=== PATIENT | female | born 1955 | race African-American/Black ===

== ENCOUNTER → 2017-01-02 | Outpatient (CLI) | payer OTHER ==
[~2017-01-02] MED LIST: ALBI1INJ SQ; ASPI81 PO; ATOR40TA49 PO; CALC600T34 PO; CLIN1CAP5 PO; Diabetic Supplies XX; EMPA1TAB PO; EXEN10PE SQ; GABA300C3 PO; HYDR-2768 PO; HYDR-3533 PO; INDO50 PO; INSU1INJ14 SQ; LANTUSP SQ; LIPI40TA PO; METF-324 PO; METF1000 PO; NEUR300C PO; NOVOLOGP2 SQ; REST0.05 EACH EYE; TAB-TAB PO; TELM20 PO; TELM40 PO; [UNRECOGNIZED DRUG - OTHER]; [UNRECOGNIZED DRUG - OTHER] PO; [UNRECOGNIZED DRUG - SUPPLY]
[2017-01-02 13:18] LABS: AUTOMATED NEUTROPHIL # 4.9 TH/MM3 (1.8-7.7); BASOPHIL # 0.1 TH/MM3 (0-0.2); BASOPHIL % 1.3 % (0.0-2.0); EOSINOPHIL # 0.1 TH/MM3 (0-0.4); EOSINOPHIL % 1.4 % (0.0-4.0); HEMATOCRIT 38.4 % (35.0-46.0); MEAN CELL VOLUME 69.4 FL (80.0-100.0); MEAN CORPUSCULAR HEMOGLOBIN 21.6 PG (27.0-34.0); MEAN CORPUSCULAR HGB CONC 31.1 % (32.0-36.0); MONO % 5.6 % (0.0-8.0); NEUT % 64.7 % (16.0-70.0); PLATELET COUNT 222 TH/MM3 (150-450); RED BLOOD COUNT 5.53 MIL/MM3 (4.00-5.30); RED CELL DISTRIBUTION WIDTH 15.4 % (11.6-17.2); RETIC % 1.4 % (0.4-3.0); WHITE BLOOD COUNT 7.6 TH/MM3 (4.0-11.0)
[2017-01-02 13:19] LABS: HEMO FLAGS AUTO DIFF
[2017-01-02 13:38] LABS: ANION GAP 8 MEQ/L (5-15); BICARBONATE 30.1 MEQ/L (21.0-32.0); BLOOD UREA NITROGEN 22 MG/DL (7-18); CHLORIDE 107 MEQ/L (98-107); GLOMERULAR FILTRATION RATE 59 ML/MIN (>89); GLUCOSE,FASTING 72 MG/DL (74-99); POTASSIUM 4.2 MEQ/L (3.5-5.1); SODIUM (NA) 145 MEQ/L (136-145)
[2017-01-02 13:39] LABS: TRANSFERRIN IRON PROFILE 216 MG/DL (200-360)
[2017-01-02 13:53] LABS: HEMOGLOBIN A1a 1.5 %; HEMOGLOBIN A1b 2.3 %; HEMOGLOBIN Ao 81.4 %; HEMOGLOBIN P3 4.3 %
[2017-01-02 14:05] LABS: SCAN/DIFF AUTO DIFF CONFIRMED
== END ==
LOC: CLAB 12:54
PROVIDERS: ATTEND Family Medicine
DX: E11.65 Type 2 diabetes mellitus with hyperglycemia (principal); E55.9 Vitamin D deficiency, unspecified; D50.9 Iron deficiency anemia, unspecified
CPT/HCPCS: 36415; 80048; 82306; 83036; 83540; 83550; 85025; 85044

== ENCOUNTER 2017-01-25 14:44 | Emergency (ER) | payer OTHER ==
[~2017-01-25] VITALS: Ht 157.5 cm; Wt 102.7 kg
[~2017-01-25 14:44] MED LIST changes: -ASPI81 PO; -ATOR40TA49 PO; -CALC600T34 PO; -CLIN1CAP5 PO; -Diabetic Supplies XX; -EXEN10PE SQ; -GABA300C3 PO; -HYDR-2768 PO; -HYDR-3533 PO; -INDO50 PO; -LANTUSP SQ; -METF-324 PO; -NOVOLOGP2 SQ; -TAB-TAB PO; -TELM40 PO; -[UNRECOGNIZED DRUG - OTHER]; -[UNRECOGNIZED DRUG - OTHER] PO; -[UNRECOGNIZED DRUG - SUPPLY]
[2017-01-25 14:46] VITALS: BP 139/84; PULSE 86; RESP 20; TEMP 97.6; O2SAT 99
--- NOTE | 2017-01-25 15:06 | PD ---
HPI Chief Complaint: Injury Time Seen by Provider: 15:06 Travel History International Travel<30 days: No Contact w/Intl Traveler<30days: No Traveled to known affect area: No History of Present Illness HPI 61-year-old female presents to the emergency Department with complaint of right foot pain and swelling since Monday after twisting it while gardening. She said she tripped over the root of a tree and twisted her foot. She has been working the last 2 days and has been ambulatory on the foot. Denies paresthesias, loss of sensation, decreased range of motion, decreased strength to the affected extremity. Denies fever, chills, nausea, vomiting. Has taken ibuprofen and is using a postop shoe for support. She has also been elevating and icing her foot. Denies being up-to-date on her tetanus vaccination. Allergies to Norvasc and Vasotec. History of diabetes. No other modifying factors or associated signs and symptoms. PFSH Past Medical History Hx Anticoagulant Therapy: Yes Anemia: Yes Cancer: No Cardiovascular Problems: Yes Chemotherapy: No Cerebrovascular Accident: No Diabetes: Yes Diminished Hearing: No Glaucoma: No Hepatitis: No Hiatal Hernia: No Hypertension: No Neurologic: Yes (diabetic neuropathy) Respiratory: No Thyroid Disease: No Past Surgical History Abdominal Surgery: No Cardiac Surgery: Yes (CARDIAC CATH, MILD BLOCKAGE) Ear Surgery: No Endocrine Surgery: No Eye Surgery: Yes (CATARACT EXTRACT. RIGHT) Genitourinary Surgery: No Gynecologic Surgery: Yes (EXP LAP REPAIR LACERATION UTERUS (POST-OP CHILDBIRTH) ) Hysterectomy: No Oral Surgery: No Pacemaker: No Thoracic Surgery: No Social History Alcohol Use: Yes (SOCIALLY) Tobacco Use: No Substance Use: No Allergies-Medications (Allergen,Severity, Reaction): Coded Allergies: Norvasc (Verified Allergy, Intermediate, COUGHING, 01/25/17) Vasotec (Verified Allergy, Intermediate, COUGHING, 01/25/17) Reported Meds & Prescriptions Reported Meds & Active Scripts Active Clindamycin (Clindamycin HCl) 150 Mg Cap 450 Mg PO Q6H 10 Days Reported Restasis Opth Drops (Cyclosporine Opth Drops) 0.05% Emul 1 Drop EACH EYE BID Jardiance (Empagliflozin) 10 Mg Tab 10 Mg PO DAILY Tresiba Flextouch Pen Inj (Insulin Degludec Inj) 300 unit/3 ML Pen 34 Units SQ HS Tanzeum 4-Pack Inj (Albiglutide) 30 Mg Pfpen 30 Mg SQ Q7D Neurontin (Gabapentin) 300 Mg Cap 300 Mg PO BID Micardis (Telmisartan) 20 Mg Tab 20 Mg PO DAILY Metformin (Metformin HCl) 1,000 Mg Tab 1,000 Mg PO BIDPC With meals Lipitor (Atorvastatin Calcium) 40 Mg Tab 40 Mg PO HS Review of Systems Except as stated in HPI: all other systems reviewed are Neg Physical Exam Narrative GENERAL: Well-nourished, well-developed female patient, in no acute distress; afebrile, nontoxic-appearing SKIN: Warm and dry. HEAD: Atraumatic. Normocephalic. EYES: Pupils equal and round. No scleral icterus. No injection or drainage. ENT: Mucosa pink and moist. Airway patent. NECK: Trachea midline. CARDIOVASCULAR: Regular rate. RESPIRATORY: No accessory muscle use. GASTROINTESTINAL: Obese. MUSCULOSKELETAL: Dorsal aspect of right foot with edema, erythema, and warmth to touch; with tenderness on palpation; edema extends up to the ankle but the ankles without tenderness on palpation; no obvious deformity; no open wounds noted. Right lower extremity supple and non-tense with 2+ pedal pulses and sensory intact. No obvious deformities. No clubbing. No cyanosis. No edema. NEUROLOGICAL: Awake and alert. Oriented 3. No obvious cranial nerve deficits. Motor grossly within normal limits. Normal speech. PSYCHIATRIC: Appropriate mood and affect; insight and judgment normal. Data Data Last Documented VS Vital Signs Date Time Temp Pulse Resp B/P Pulse Ox O2 Delivery O2 Flow Rate FiO2 01/25/17 14:46 97.6 86 20 139/84 99 Room Air Orders Foot, Complete (Hjy2azz) (01/25/17 15:06) Ice/Cold Pack (01/25/17 15:06) Acetaminophen (Tylenol) (01/25/17 15:15) Tetanus/Diphtheria Tox Adult (Tetanus/Di (01/25/17 15:30) MDM Medical Decision Making Medical Screen Exam Complete: Yes Emergency Medical Condition: Yes Medical Record Reviewed: Yes Differential Diagnosis Foot fracture, cellulitis, foot sprain Narrative Course 61-year-old female with right foot injury. The dorsal aspect of the right foot is edematous and appears to have some erythema and warmth to touch that maybe consistent with cellulitis. I will prescribe antibiotics for possible cellulitis. Patient was gardening during injury. Tetanus updated in the ER. Tylenol ordered. Right foot x-ray ordered. 1558: Right foot x-ray concludes Degenerative changes without fracture. Clindamycin will be prescribed for possible cellulitis. Patient has postop shoe for support. Patient is discharged to home and a cane at home that she will use for support if needed. Clindamycin prescribed for home. Patient verbalizes understanding and agreement with treatment plan. Patient is medically cleared and stable for discharge. Discussed reasons to return to the emergency department. Instructed patient to follow up with primary care provider. Patient agrees with treatment plan. The patients vital signs are stable and the patient is stable for outpatient follow-up and treatment. Patient discharged home, stable and in no acute distress. Diagnosis Primary Impression: Right foot injury Qualified Code: S99.921A - Right foot injury, initial encounter Additional Impression: Edema of right foot Referrals: Primary Care Physician Patient Instructions: Cellulitis (ED), Foot Sprain (ED), General Instructions Departure Forms: Tests/Procedures, Work Release Enter return to work date: Jan 30, 2017 Additional Instructions: Tylenol or ibuprofen as directed and as needed for pain and inflammation Rest, ice, compress, and elevate extremity to decrease pain and inflammation [place] bandage for compression and support Crutches for support Avoid aggravating activity; increase activity as tolerated Follow-up with primary care provider Return to the emergency department immediately with worsening symptoms Med/Other Pt SpecificInfo: Prescription(s) given Scripts Clindamycin 150 Mg [id number] Mg PO Q6H 10 Days Ref 0 Prov:Emerald Denis 01/25/17 Disposition: 01 DISCHARGE HOME Condition: Stable Emerald Denis Jan 25, 2017 15:06
[2017-01-25] MEDS ORDERED: ACETAMINOPHEN 325 MG TAB PO ONE (15:15)
[2017-01-25] MEDS ORDERED: TETANUS/DIPHTHERIA TOXOID ADULT 0.5 ML VIAL IM ONE (15:30)
[2017-01-25] MEDS ORDERED: CLIN1CAP5 PO (15:47)
--- NOTE | 2017-01-25 15:47 | RADRPT ---
EXAM DATE/TIME: 01/25/2017 15:36 [facility] COMPARISON: FOOT RIGHT COMPLETE ([id number]), July 16, 2015, 22:02. INDICATIONS : Right lateral foot pain after stepping in a hole today. MEDICAL HISTORY : Diabetes mellitus type II. Previous fracture. SURGICAL HISTORY : None. ENCOUNTER: Initial ACUITY: 1 day PAIN SCORE: 9/10 LOCATION: Right lateral foot as well as the top of the foot. FINDINGS: Degenerative changes are evident. Alignment is anatomic. Fracture is not appreciated. Pes planus de formity is noted. CONCLUSION: Degenerative changes without fracture. Bill Gu MD FACR on January 25, 2017 at 15:42 Board Certified Radiologist. This report was verified electronically.
== END 2017-01-25 16:16 | disposition home or self-care (01) ==
LOC: NEPK 14:44
DX: S99.921A Unspecified injury of right foot, initial encounter (principal); W22.8XXA Striking against or struck by other objects, initial encounter; Y93.H2 Activity, gardening and landscaping; Z23 Encounter for immunization
CPT/HCPCS: 73630; 90471; 90714

== ENCOUNTER → 2017-03-06 | Outpatient (CLI) | payer OTHER ==
[~2017-03-06] MED LIST changes: +CLIN1CAP5 PO
[2017-03-06 09:40] LABS: AUTOMATED NEUTROPHIL # 4.9 TH/MM3 (1.8-7.7); BASOPHIL % 0.4 % (0.0-2.0); EOSINOPHIL # 0.8 TH/MM3 (0-0.4); LYMPH % 22.7 % (9.0-44.0); LYMPHOCYTE # 1.8 TH/MM3 (1.0-4.8); MEAN CELL VOLUME 69.5 FL (80.0-100.0); MEAN CORPUSCULAR HGB CONC 30.3 % (32.0-36.0); MONO % 6.3 % (0.0-8.0); NEUT % 60.6 % (16.0-70.0); PLATELET COUNT 218 TH/MM3 (150-450); RED BLOOD COUNT 5.47 MIL/MM3 (4.00-5.30); RED CELL DISTRIBUTION WIDTH 14.8 % (11.6-17.2)
[2017-03-06 09:42] LABS: HEMO FLAGS AUTO DIFF
[2017-03-06 10:14] LABS: SCAN/DIFF AUTO DIFF CONFIRMED
[2017-03-06 10:37] LABS: FERRITIN 701 NG/ML (8-252)
== END ==
LOC: CLAB 09:09
PROVIDERS: ATTEND Internal Medicine Hematology & Oncology
DX: D50.9 Iron deficiency anemia, unspecified (principal)
CPT/HCPCS: 36415; 82728; 83020; 83021; 85025

== ENCOUNTER → 2017-04-04 | Outpatient (CLI) | payer OTHER ==
[2017-04-04 10:06] LABS: MICRO ALBUMIN RANDOM URINE RAW 30.1 MG/L (0.0-30.0)
[2017-04-04 10:08] LABS: ANION GAP 10 MEQ/L (5-15); BICARBONATE 24.8 MEQ/L (21.0-32.0); BLOOD UREA NITROGEN 15 MG/DL (7-18); CHLORIDE 107 MEQ/L (98-107); GLOMERULAR FILTRATION RATE 60 ML/MIN (>89); GLUCOSE,FASTING 165 MG/DL (74-99); POTASSIUM 4.3 MEQ/L (3.5-5.1); SODIUM (NA) 142 MEQ/L (136-145)
[2017-04-04 10:11] LABS: HDL CHOLESTEROL 40.2 MG/DL (40.0-60.0); LDL CHOLESTEROL 126 MG/DL (0-99)
[2017-04-04 10:58] LABS: HEMOGLOBIN A1a 1.4 %; HEMOGLOBIN A1b 2.3 %; HEMOGLOBIN Ao 80.4 %; HEMOGLOBIN LA1C 2.8 %; HEMOGLOBIN P3 4.7 %
== END ==
LOC: CLAB 09:17
DX: E11.65 Type 2 diabetes mellitus with hyperglycemia (principal)
CPT/HCPCS: 36415; 80048; 80061; 82043; 83036; 84681

== ENCOUNTER → 2017-07-11 | Outpatient (CLI) | payer OTHER ==
[2017-07-11 10:02] LABS: AUTOMATED NEUTROPHIL # 4.7 TH/MM3 (1.8-7.7); BASOPHIL % 0.3 % (0.0-2.0); EOSINOPHIL # 0.1 TH/MM3 (0-0.4); HEMATOCRIT 38.6 % (35.0-46.0); HEMO FLAGS DIFF FINAL; LYMPH % 25.3 % (9.0-44.0); LYMPHOCYTE # 1.8 TH/MM3 (1.0-4.8); MEAN CORPUSCULAR HEMOGLOBIN 21.4 PG (27.0-34.0); MEAN CORPUSCULAR HGB CONC 30.5 % (32.0-36.0); MONO % 6.5 % (0.0-8.0); NEUT % 65.9 % (16.0-70.0); PLATELET COUNT 229 TH/MM3 (150-450); RED BLOOD COUNT 5.52 MIL/MM3 (4.00-5.30); WHITE BLOOD COUNT 7.2 TH/MM3 (4.0-11.0)
[2017-07-11 10:30] LABS: ANION GAP 7 MEQ/L (5-15); BICARBONATE 28.4 MEQ/L (21.0-32.0); BLOOD UREA NITROGEN 17 MG/DL (7-18); CHLORIDE 107 MEQ/L (98-107); GLOMERULAR FILTRATION RATE 51 ML/MIN (>89); GLUCOSE,FASTING 167 MG/DL (74-99); POTASSIUM 3.9 MEQ/L (3.5-5.1); SODIUM (NA) 142 MEQ/L (136-145)
[2017-07-11 18:02] LABS: HEMOGLOBIN A1a 1.3 %; HEMOGLOBIN A1b 2.4 %; HEMOGLOBIN Ao 80.6 %; HEMOGLOBIN LA1C 2.8 %; HEMOGLOBIN P3 4.6 %
== END ==
LOC: CLAB 09:17
DX: D50.9 Iron deficiency anemia, unspecified (principal); E11.65 Type 2 diabetes mellitus with hyperglycemia
CPT/HCPCS: 36415; 80048; 82728; 83036; 85025

== ENCOUNTER → 2017-10-03 | Outpatient (CLI) | payer OTHER ==
[~2017-10-03] MED LIST changes: +CLIN150C14 PO; -CLIN1CAP5 PO
[2017-10-03 10:08] LABS: ANION GAP 6 MEQ/L (5-15); BLOOD UREA NITROGEN 15 MG/DL (7-18); CHLORIDE 110 MEQ/L (98-107); GLOMERULAR FILTRATION RATE 55 ML/MIN (>89); GLUCOSE,FASTING 89 MG/DL (74-99); POTASSIUM 4.5 MEQ/L (3.5-5.1); SODIUM (NA) 143 MEQ/L (136-145)
[2017-10-03 12:42] LABS: HEMOGLOBIN A1a 1.3 %; HEMOGLOBIN A1b 2.2 %; HEMOGLOBIN Ao 82.3 %
== END ==
LOC: CLAB 09:06
DX: E11.65 Type 2 diabetes mellitus with hyperglycemia (principal)
CPT/HCPCS: 36415; 80048; 83036

== ENCOUNTER → 2017-12-11 | Day surgery (SDC) | payer OTHER ==
[~2017-12-11] MED LIST changes: +PROPOFOL 200 MG/20 ML AMP IV ONE; +PROPOFOL 500 MG/50 ML BTL IV ONE
--- NOTE | 2017-12-11 15:58 | GIPROC ---
[facility] [address] [place], [address] COLONOSCOPY PROCEDURE REPORT EXAM DATE: 12/11/2017 PATIENT NAME: Lalitha Bello MR #: [id number] BIRTHDATE: 1955 ENDOSCOPIST: Todd Aaron MD ORDER #: [id number] [employer] FOREMAN/SUPERINTENDANT: Claire Cuevas RN STATUS: outpatient INDICATIONS: The patient is a 62 yr old female here for a colonoscopy due to average risk patient for colon cancer PROCEDURE PERFORMED: Colonoscopy, screening MEDICATIONS: None and Per Anesthesia. PREP QUALITY: excellent ESTIMATED BLOOD LOSS: None CONSENT: The patient understands the risks and benefits of the procedure and understands that these risks include, but are not limited to: sedation, allergic reaction, infection, perforation and/or bleeding. Alternative means of evaluation and treatment include, among others: physical exam, x-rays, and/or surgical intervention. The patient elects to proceed with this endoscopic procedure. medical equipment was checked for proper function. Hand hygiene and appropriate measures for infection prevention was taken. After the risks, benefits and alternatives of the procedure were thoroughly explained, Informed consent was verified, confirmed and timeout was successfully executed by the treatment team. A digital exam revealed no abnormalities of the rectum The [id number] ([id number]) endoscope was introduced through the anus and advanced to the cecum, which was identified by both the appendix and ileocecal valve. The instrument was then slowly withdrawn as the colon was fully examined. COLON FINDINGS: Mild diverticulosis was noted in the ascending colon, descending colon, and sigmoid colon. The colon mucosa was otherwise normal. Retroflexed views revealed no abnormalities The scope was then completely withdrawn from the patient and the procedure terminated. PROCEDURE WITHDRAWAL TIME:7.9minutes ADVERSE EVENTS: There were no complications. IMPRESSIONS: 1. Mild diverticulosis was noted in the ascending colon, descending colon, and sigmoid colon 2. The colon mucosa was otherwise normal 3. Retroflexed views revealed no abnormalities 4. Revealed no abnormalities of the rectum RECOMMENDATIONS: 1. High fiber diet 2. Yearly hemoccult 3. Follow-up: GI Clinic PRN RECALL: Return 10 years Colonoscopy Todd Aaron MD eSigned: Todd Aaron MD 12/11/2017 3:58 PM cc: Ny Moore M.D.
== END | disposition home or self-care (01) ==
LOC: ESDC 13:15
PROVIDERS: ATTEND Internal Medicine Gastroenterology
DX: Z12.11 Encounter for screening for malignant neoplasm of colon (principal); E11.9 Type 2 diabetes mellitus without complications; Z79.4 Long term (current) use of insulin
CPT/HCPCS: 82948

== ENCOUNTER → 2018-01-09 | Outpatient (CLI) | payer OTHER ==
[~2018-01-09] MED LIST changes: -PROPOFOL 200 MG/20 ML AMP IV ONE; -PROPOFOL 500 MG/50 ML BTL IV ONE
[2018-01-09 10:07] LABS: AUTOMATED NEUTROPHIL # 4.3 TH/MM3 (1.8-7.7); BASOPHIL % 0.4 % (0.0-2.0); EOSINOPHIL # 0.2 TH/MM3 (0-0.4); EOSINOPHIL % 3.9 % (0.0-4.0); HEMATOCRIT 36.2 % (35.0-46.0); HEMOGLOBIN 11.2 GM/DL (11.6-15.3); LYMPH % 22.5 % (9.0-44.0); LYMPHOCYTE # 1.4 TH/MM3 (1.0-4.8); MEAN CELL VOLUME 69.4 FL (80.0-100.0); MEAN CORPUSCULAR HEMOGLOBIN 21.5 PG (27.0-34.0); MEAN CORPUSCULAR HGB CONC 30.9 % (32.0-36.0); MEAN PLATELET VOLUME 7.5 FL (7.0-11.0); MONO % 6.4 % (0.0-8.0); MONOCYTE # 0.4 TH/MM3 (0-0.9); NEUT % 66.8 % (16.0-70.0); PLATELET COUNT 209 TH/MM3 (150-450); RED BLOOD COUNT 5.22 MIL/MM3 (4.00-5.30); RED CELL DISTRIBUTION WIDTH 15.4 % (11.6-17.2); WHITE BLOOD COUNT 6.4 TH/MM3 (4.0-11.0)
[2018-01-09 10:23] LABS: BACTERIA, URINE RARE /hpf; BILIRUBIN, URINE NEG (NEG); BLOOD, URINE NEG (NEG); GLUCOSE,URINE NEG (NEG); KETONE, URINE NEG (NEG); NITRITE,URINE NEG (NEG); SQUAMOUS EPITHELIAL CELL URINE 1 /hpf (0-5); URINE COLOR LIGHT-YELLOW (YELLW/STRAW); URINE LEUKOCYTE ESTERASE NEG (NEG)
[2018-01-09 10:35] LABS: ALBUMIN 3.2 GM/DL (3.4-5.0); BICARBONATE 27.8 MEQ/L (21.0-32.0); BLOOD UREA NITROGEN 20 MG/DL (7-18); CHLORIDE 110 MEQ/L (98-107); CREATININE 1.25 MG/DL (0.50-1.00); GLOMERULAR FILTRATION RATE 52 ML/MIN (>89); GLUCOSE,FASTING 140 MG/DL (74-99); SODIUM (NA) 144 MEQ/L (136-145)
[2018-01-09 10:37] LABS: AST (GOT) 13 U/L (15-37); CHOLESTEROL 198 MG/DL (120-200)
[2018-01-09 11:04] LABS: ALKALINE PHOSPHATASE 167 U/L (45-117); ALT (GPT) 18 U/L (10-53); CHOLESTEROL/ HDL RATIO 4.96 RATIO; FOLATE 8.7 NG/ML (3.1-17.5); HDL CHOLESTEROL 39.9 MG/DL (40.0-60.0); LDL CHOLESTEROL 137 MG/DL (0-99); TOTAL BILIRUBIN ADULT 0.2 MG/DL (0.2-1.0); TOTAL PROTEIN 7.7 GM/DL (6.4-8.2); TRIGLYCERIDES 104 MG/DL (42-150)
[2018-01-09 16:19] LABS: HEMOGLOBIN A1C 7.6 % (4.3-6.0)
== END ==
LOC: CLAB 09:38
PROVIDERS: ATTEND Family Medicine
DX: E78.2 Mixed hyperlipidemia (principal); E11.9 Type 2 diabetes mellitus without complications; I10 Essential (primary) hypertension; Z12.11 Encounter for screening for malignant neoplasm of colon; Z79.899 Other long term (current) drug therapy; Z79.84 Long term (current) use of oral hypoglycemic drugs
CPT/HCPCS: 36415; 80053; 80061; 81001; 82043; 82306; 82607; 82746; 83036; 84443; 85025